=== PATIENT | female | born 1965 | race Two or more races ===

== ENCOUNTER 2017-03-23 09:21 | Emergency (ER) | payer OTHER, SELFPAY ==
[2017-03-23 09:29] VITALS: BP 123/76; PULSE 68; RESP 16; TEMP 98; O2SAT 100
--- NOTE | 2017-03-23 10:08 | ED PDOC ---
HPI: Female Pain Time Seen by Provider: 03/23/17 09:45 Chief Complaint (Nursing): Female Genitourinary Chief Complaint (Provider): Dysuria History Per: Patient, Patcher (son) History/Exam Limitations: no limitations Onset/Duration Of Symptoms: Days (x 3 weeks) Current Symptoms Are (Timing): Still Present Associated Symptoms: Back Pain, Urinary Symptoms Additional Complaint(s): Chary is a 51 y/o female who presents to the ED complaining of urinary frequency and dysuria for the past 3 weeks. Also complaining of pain to the bilateral sides of entire back, radiating down the bilateral legs, since 2 weeks ago. Patient denies having similar pain in the past, and has worked in a factory for several years. No numbness, weakness, vaginal discharge, incontinence, abdominal pain, arm pain, headache, dizziness, chest pain, shortness of breath, nausea, vomiting, or diarrhea. Took Excedrin at home with minimal relief. No tingles. No incontinence or constipation. Feels it may be from factory where she is hovering over and bending doing work. PMD: [facility] Past Medical History Reviewed: Historical Data, Nursing Documentation, Vital Signs Vital Signs: Last Vital Signs Temp 98 F 03/23/17 09:28 Pulse 68 03/23/17 09:28 Resp 16 03/23/17 09:28 BP 123/76 03/23/17 09:28 Pulse Ox 100 03/23/17 09:28 - Medical History Other PMH: Vertigo - Surgical History Surgical History: No Surg Hx - Family History Family History: States: Unknown Family Hx - Living Arrangements Living Arrangements: With Family - Social History Current smoker - smoking cessation education provided: No Alcohol: None Drugs: Denies - Immunization History Hx Tetanus Toxoid Vaccination: No Hx Influenza Vaccination: No Hx Pneumococcal Vaccination: No - Home Medications Home Medications: Ambulatory Orders Medication Instructions Recorded Ibuprofen [Motrin] 600 mg PO TID 7 Days tab 03/23/17 Nitrofurantoin Macrocrystals 100 mg PO BID #10 cap 03/23/17 [Macrobid] Phenazopyridine HCl [Pyridium] 100 mg PO BID PRN 5 Days tab 03/23/17 - Allergies Allergies/Adverse Reactions: Allergies Allergy/AdvReac Type Severity Reaction Status Date / Time No Known Allergies Allergy Verified 03/23/17 09:51 Review of Systems Constitutional: Negative for: Fever, Chills, Weakness Eyes: Negative for: Vision Change Cardiovascular: Negative for: Chest Pain Respiratory: Negative for: Cough, Shortness of Breath Gastrointestinal: Negative for: Nausea, Vomiting, Abdominal Pain, Diarrhea Genitourinary Female: Positive for: Dysuria, Frequency. Negative for: Incontinence, Vaginal Discharge Musculoskeletal: Positive for: Back Pain (entire back, radiating down bilateral legs). Negative for: Arm Pain, Hand Pain Neurological: Negative for: Weakness, Numbness, Headache, Dizziness Physical Exam - Reviewed Nursing Documentation Reviewed: Yes Vital Signs Reviewed: Yes - Physical Exam Appears: Positive for: Non-toxic, No Acute Distress Head Exam: Positive for: ATRAUMATIC, NORMOCEPHALIC Skin: Positive for: Normal Color, Warm, Dry Eye Exam: Positive for: EOMI, Normal appearance, PERRL Neck: Positive for: Normal, Painless ROM, Supple Cardiovascular/Chest: Positive for: Regular Rate, Rhythm. Negative for: Murmur Respiratory: Positive for: Normal Breath Sounds. Negative for: Accessory Muscle Use, Respiratory Distress Gastrointestinal/Abdominal: Positive for: Normal Exam, Soft. Negative for: Tenderness Back: Positive for: Other (Mild tenderness at bilateral left and right lateal entire back). Negative for: Vertebral Tenderness Extremity: Positive for: Normal ROM. Negative for: Tenderness, Pedal Edema, Deformity, Other (straight leg test, bilaterally neg) Neurologic/Psych: Positive for: Alert, Oriented. Negative for: Motor/Sensory Deficits - ECG O2 Sat by Pulse Oximetry: 100 (RA) Pulse Ox Interpretation: Normal - Progress ED Course And Treament: 1027: Stable. AAOx3. Ambulated with no issues. Will tx for uti. Fu with pcp for further eval and tx for back pain. Likely muscle related. Medical Decision Making Medical Decision Making: Time: 10:04 Initial Plan: --POC blood glucose --Urine C&S --Urine dip --Valium 5 mg PO --Toradol 15 mg IM --Pending reevaluation Scribe Attestation: Documented by Shira Cernshaw, acting as a scribe for Sidney Medina MD Provider Scribe Attestation: All medical record entries made by the Scribe were at my direction and personally dictated by me. I have reviewed the chart and agree that the record accurately reflects my personal performance of the history, physical exam, medical decision making, and the department course for this patient. I have also personally directed, reviewed, and agree with the discharge instructions and disposition. Disposition - Clinical Impression Clinical Impression: Urinary tract infection - Patient ED Disposition Is Patient to be Admitted: No Counseled Patient/Family Regarding: Studies Performed, Diagnosis, Need For Followup, Rx Given - Disposition Referrals: [facility] [Outside] - 03/24/17 Disposition: Routine/Home Disposition Time: 10:28 Condition: STABLE Additional Instructions: Return if not better in 3 days. Prescriptions: Ibuprofen [Motrin] 600 mg PO TID 7 Days tab Nitrofurantoin Macrocrystals [Macrobid] 100 mg PO BID #10 cap Phenazopyridine HCl [Pyridium] 100 mg PO BID PRN 5 Days tab PRN Reason: Bladder Spasm Instructions: Urinary Tract Infection in Women (ED), Musculoskeletal Pain (ED) Print Language: SLOVAK
== END 2017-03-23 11:16 | disposition home or self-care (01) ==
LOC: H.ER 09:21
DX: N39.0 Urinary tract infection, site not specified (principal)
CPT/HCPCS: 82948; 87086; 96372; 99284; J1885